=== PATIENT | male | born 1945 | race Caucasian/White ===

== ENCOUNTER 2019-06-24 19:01 | Emergency (ER) | payer MEDICARE ==
--- NOTE | 2019-06-24 21:46 | ED ---
Headache - HPI Summary HPI Summary: Pt is a 74 y/o M presenting to the ED with a chief complaint of a headache initially onset yesterday 06/23/19, around mid-day. The severity has been waxing and waning, reaching its peak last night around 2100. Around 1700 today it began again, and he describes it as a severe sinus headache mainly on the R part of his head, but sometimes becomes diffuse. He notes some nausea associated with the OKEEFE. He denies fevers, chills, cough, rhinorrhea, blurred vision, diplopia, weakness, or slurred speech. He notes hx of cervical disc compression with radiation down his R arm, which has caused some chronic weakness, however there is nothing acute. NKDA. - History Of Current Complaint Chief Complaint: EDHeadache Stated Complaint: HEADACHE PER PT Time Seen by Provider: 06/24/19 21:22 Hx Obtained From: Patient Onset/Duration: Gradual Onset, Started days ago, Still Present Initially Headache Was: Moderate Currently Pain Is: Moderate Timing: Intermittent, Lasting:, Days Character: Typical Headache - "sinus headache" Location of Headache: Other: - R side primarily, sometimes diffuse Aggravating Factor: Nothing Allevating Factors: Nothing Associated Signs And Symptoms: Nausea - Allergies/Home Medications Allergies/Adverse Reactions: Allergies Allergy/AdvReac Type Severity Reaction Status Date / Time No Known Allergies Allergy Verified 06/24/19 19:09 PMH/Surg Hx/FS Hx/Imm Hx Previously Healthy: Yes Endocrine/Hematology History: Denies: Hx Diabetes, Hx Thyroid Disease Cardiovascular History: Denies: Hx Hypertension Respiratory History: Denies: Hx Asthma, Hx Chronic Obstructive Pulmonary Disease (COPD) GI History: Denies: Hx Ulcer Neurological History: Reports: Hx Headaches - sinus headaches Infectious Disease History: No Infectious Disease History: Denies: Hx Clostridium Difficile, Hx Hepatitis, Hx Human Immunodeficiency Virus (HIV), Hx of Known/Suspected MRSA, Hx Shingles, Hx Tuberculosis, Hx Known/ Suspected VRE, Hx Known/Suspected VRSA, History Other Infectious Disease, Traveled Outside the [place] in Last 30 Days - Family History Known Family History: Negative: Cardiac Disease - Social History Alcohol Use: Daily Alcohol Amount: 1 beer or wine a night Hx Substance Use: No Substance Use Type: Reports: None Hx Tobacco Use: No Smoking Status (MU): Never Smoked Tobacco Review of Systems Negative: Fever, Chills Negative: Blurred Vision, Diplopia Negative: Nasal Discharge Negative: Cough Positive: Nausea Positive: Headache. Negative: Weakness, Slurred Speech All Other Systems Reviewed And Are Negative: Yes Physical Exam - Summary Physical Exam Summary: Appearance: Well-appearing, Well-nourished, lying in bed comfortably Skin: Warm, dry, no obvious rash Eyes: sclera anicteric, no conjunctival pallor ENT: mucous membranes moist, pharynx appears normal Neck: Supple, nontender Respiratory: Clear to auscultation, no signs of respiratory distress Cardiovascular: Normal S1, S2. No murmurs. Normal distal pulses in tibial and radial bilaterally. Abdomen: Soft, nontender, normal active bowel sounds present Musculoskeletal: Normal, Strength/ROM Intact, Motor function in all 4 extremities is normal and symmetric. There is no rigidity or tremor noted. Neurological: A&Ox3, awake and alert, mentation is normal, speech is fluent and appropriate, Level of consciousness nml. The patient is alert and oriented. Cranial nerves are grossly intact. Gaze is conjugate and without nystagmus. Peripheral vision is intact to confrontation. There are no gross sensory abnormalities to light touch. There is no truncal or fine motor ataxia. Gait is normal. Psychiatric: affect is normal, does not appear anxious or depressed Triage Information Reviewed: Yes Vital Signs On Initial Exam: Initial Vitals Temp Pulse Resp BP Pulse Ox 96.7 F 58 16 162/104 97 06/24/19 19:05 06/24/19 19:05 06/24/19 19:05 06/24/19 19:05 06/24/19 19:05 Vital Signs Reviewed: Yes Diagnostics - Vital Signs Vital Signs Temp Pulse Resp BP Pulse Ox 06/24/19 21:09 98.6 F 59 18 142/67 98 06/24/19 19:05 96.7 F 58 16 162/104 97 - Laboratory Result Diagrams: 06/24/19 21:42 06/24/19 21:42 Lab Statement: Any lab studies that have been ordered have been reviewed, and results considered in the medical decision making process. - CT Brain CT CT Interpretation Completed By: Radiologist Summary of CT Findings: No acute intracranial findings. ED physician has reviewed this report. CTA Head CT Interpretation Completed By: Radiologist Summary of CT Findings: No acute findings. ED physician has reviewed this report. CTA Neck CT Interpretation Completed By: Radiologist Summary of CT Findings: 1. Atheromatous changes involving the right and left proximal internal carotid arteries. These are not hemodynamically significant. Tortuosity of the distal right and left internal carotid arteries. No hemodynamically significant kinking. 2. Focal narrowing of the origin of the right vertebral artery which appears to about 60 -70% in severity based on the coronal images. ED physician has reviewed this report. Headache Course/Dx - Course Course Of Treatment: Pt is a 74 y/o M presenting to the ED with a chief complaint of a headache initially onset yesterday 06/23/19, around mid-day. He notes some nausea associated with the [place]. He denies fevers, chills, cough, rhinorrhea, blurred vision, diplopia, weakness, or slurred speech. He notes hx of cervical disc compression with radiation down his R arm, which has caused some chronic weakness, however there is nothing acute. NKDA. Pt's full physical exam is nml. Brain CT shows no acute intracranial findings. CTA Head shows no acute findings. CTA Neck shows: 1. Atheromatous changes involving the right and left proximal internal carotid arteries. These are not hemodynamically significant. Tortuosity of the distal right and left internal carotid arteries. No hemodynamically significant kinking. 2. Focal narrowing of the origin of the right vertebral artery which appears to about 60 -70% in severity based on the coronal images. Pt will be d/c'ed with dx of headache. He is stable and agreeable with this plan. - Diagnoses Provider Diagnoses: Headache Discharge ED - Sign-Out/Discharge Documenting (check all that apply): Patient Departure Patient Received Moderate/Deep Sedation with Procedure: No - Discharge Plan Condition: Stable Disposition: HOME Patient Education Materials: Tension Headache (ED) Referrals: Sreedhar Springer MD [Primary Care Provider] - 3 Days (if not better) - Billing Disposition and Condition Condition: STABLE Disposition: Home - Attestation Statements Document Initiated by Scribe: Yes Documenting Scribe: Ciara Henao Provider For Whom Edmundibe is Documenting (Include Credential): Mike Oliver MD. Scribe Attestation: Ciara Gonzalez, edmundibed for Mike Oliver MD. on 06/27/19 at 0418. Scribe Documentation Reviewed: Yes Provider Attestation: The documentation as recorded by the scribe, Ciara Henao accurately reflects the service I personally performed and the decisions made by me, Mike Oliver MD. Status of Edmundibe Document: Viewed
[2019-06-24 21:50] LABS: ABS Basophils 0.1 10^3/ul (0-0.2); ABS Lymphocytes 1.3 10^3/ul (1.0-4.8); ABS Monocytes 0.4 10^3/ul (0-0.8); ABS Neutrophils 8.6 10^3/ul (1.5-7.7); Eosinophil % 0.4 %; Hematocrit 46 % (42-52); Hemoglobin 15.6 g/dL (14.0-18.0); Lymphocyte % 12.5 %; Mean Corpuscular HGB Conc 34 g/dL (31-36); Mean Corpuscular Hemoglobin 32 pg (27-31); Mean Corpuscular Volume 94 fL (80-94); Mean Platelet Volume 9.8 fL (7.4-10.4); Nucleated Red Blood Cells % 0.3; Platelet Count 194 10^3/uL (150-450); Red Blood Count 4.86 10^6 /uL (4.18-5.48); Red Cell Distribution Width 13 % (10-15); White Blood Count 10.4 10^3/uL (3.5-10.8)
[2019-06-24 22:05] LABS: Albumin 4.6 g/dL (3.2-5.2); Albumin/Globulin Ratio 1.5 (1-3); BUN/Creatinine Ratio 21.6 (8-20); Calcium 9.7 mg/dL (8.6-10.3); EGFR African American 74.5 (>60); EGFR Non-African American 61.5 (>60); Total Bilirubin 0.8 mg/dL (0.2-1.0); Total Protein 7.6 g/dL (6.4-8.9)
[2019-06-24 22:11] LABS: INR 0.97 (0.82-1.09)
[2019-06-24] MEDS: Iohexol 350* (CONTRAST) 500 ML MDV IV ONE (22:33)
[2019-06-24] MEDS: NS 0.9% 1000 ML** 2,000 ML IV ONE (23:02)
[2019-06-24] MEDS: Ketorolac INJ* 30 MG/ML 1 ML VIAL IV PUSH ONE (23:03)
[2019-06-24] MEDS: PROCHLORPERAZINE INJ 5 MG/ML 2 ML VIAL IV ONE (23:03)
[2019-06-24] MEDS: diPHENhydraMINE IV* 50 MG/ML 1 ml VIAL (BENADRYL) IV ONE (23:03)
[2019-06-24 23:35] LABS: Erythrocyte Sed Rate 10 mm/Hr (0-19)
[2019-06-25 00:28] VITALS: BP 147/82
== END 2019-06-25 00:24 | disposition home or self-care (01) ==
LOC: ED 19:01
DX: R51 Headache (principal)
CPT/HCPCS: 36415; 70450; 70496; 70498; 80053; 85025; 85610; 85652; 96361; 96374; 96375; 99282; J0780; J1200; J1885; Q9967